=== PATIENT | male | born 1985 | race Caucasian/White ===

== ENCOUNTER 2017-12-29 08:07 | Observation (INO) | payer OTHER ==
[~2017-12-29] VITALS: Ht 182.9 cm; Wt 109.0 kg
[~2017-12-29 08:07] MED LIST: CLEOCIN300 MG PO; LORTAB 10-325 M1 TAB PO
--- NOTE | 2017-12-29 08:21 | NUR ---
PATIENT AMBULATES TO ROOM WITH STEADY GAIT. INFORMED OF PATIENT STATUS AND POSSIBLE SEPSIS RISK.
[2017-12-29] MEDS ORDERED: CLEOCIN150 MG PO (08:35)
[2017-12-29 08:48] LABS: HEMATOCRIT 40.4 % (39.0-50.0); HEMOGLOBIN 14.3 g/dl (14.0-18.0); IMMATURE GRANULOCYTES 0.3 % (0.0-5.0); MEAN CORPUSCULAR HGB 29.4 pG CALC (26.0-32.0); MEAN CORPUSCULAR HGB CONC 35.4 g/L CALC (32.0-36.0); NEUT# 9.73 thou/uL (1.82-7.42); RED BLOOD COUNT 4.87 mill/uL (4.70-6.10); RED CELL DISTRI WIDTH 11.9 % (11.5-15.5)
[2017-12-29 09:03] LABS: ANION GAP 14 (6-22 (CALC)); BUN 11 mg/dL (9-20); BUN/CREATININE RATIO 17 (12-20 (CALC)); CARBON DIOXIDE 25 mmol/l (22-30); CHLORIDE 106 mmol/l (95-108); CREATININE 0.7 mg/dL (0.7-1.3); GFR > 60 ML/MIN (>=60 (CALC)); GFR FOR AFR.AMER. > 60 ML/MIN (>=60 (CALC)); POTASSIUM 4.1 mmol/l (3.5-5.1); SODIUM 140 mmol/l (137-146)
--- NOTE | 2017-12-29 09:03 | NUR ---
IV ABT INFUSING SITE HEALTHY. ADVISED OF CURRENT POC. PT VOICED UNDERSTANDING. CALL LIGHT PROVIDED. SPOUSE AT BEDSIDE.
--- NOTE | 2017-12-29 10:29 | NUR ---
Spoke with and collaborated with, Dr. Lopes regarding admitting this Patient under observational status. Patient may meet criteria for Inpatient in near future, but at this time, Patient meets Observational status - MD agrees.
--- NOTE | 2017-12-29 10:39 | NUR ---
IV ABT COMPLETED. PT APPEARS COMFORTABLE. AFEBRILE. VSS.
--- NOTE | 2017-12-29 10:59 | NUR ---
REPORT CALLED TO STAR OCONNOR, ON [facility]. PT TO RM 274 IN STABLE CONDITION. IV SITE HEALTHY. AFEBRILE.
--- NOTE | 2017-12-29 11:22 | NUR ---
PT TO [facility] ROOM 274 VIA WC AFTER REGISTRATION PAPERWORK RECD.
--- NOTE | 2017-12-29 11:24 | NUR ---
Pt arrived on floor via stretcher accompained by ER Staff, STAR Vang; pt ambulated with steady gait to digital standing scale. Pt alert oriented X4; Left facial swelling noted; Pain 7/10 on pain scale; Pt stated he went to [facility] 12/13/17 because his face was swollen, Cristóbal Mccrary prescribed clindamycin 300mg every 6 hrs; [place] to room and call jacobs; bed in low locked position; will continue to monitor.
[2017-12-29 11:40] VITALS: BP 120/57
--- NOTE | 2017-12-29 12:40 | NUR ---
Scarlet MULLEN, at bed side to discuss poc.
--- NOTE | 2017-12-29 13:48 | NUR ---
Vancomycin consult Age: 32 years Weight: 106.8 kg Height: 182.88 cm Gender: Male SCR: 0.7 mg/dl Dosing weight: 89.28 kg IBW: 77.60 kg CRCL (ml/min): 164.7 Noah (hr-1): 0.141 Half-life (hrs): 4.92 Vd (liters): 74.76 (factor: 0.7 L/kg) Vancomycin 1500 mg Q8H to produce a predicted peak of 26 mcg/ml and a predicted trough of 12 mcg/ml based on (Population-based pharmacokinetic analysis).
--- NOTE | 2017-12-29 15:40 | NUR ---
pt resting in bed with hob elevated; no s/o of distress noted; resp even and unlabored; call light in reach; pt's family in room visiting; will continue to monitor.
[2017-12-29 15:50] VITALS: BP 124/68
--- NOTE | 2017-12-29 17:00 | NUR ---
PT STATED 0/10 PAIN, TEMP 102.6, COOL COMPRESS TO FOREHEAD; TEMP SET TO COOL; BLANKETS OFF PT; NO S/O OF DISTRESS; HOB ELEVATED; WILL CONTINUE TO MONITOR.
[2017-12-29 19:11] VITALS: BP 118/62
--- NOTE | 2017-12-29 19:30 | NUR ---
PATIENT RESTING IN BED AT THIS TIME-AWAKE ALERT AND ORIENTEDX3. PATIENT WITH SEVERE SWELLING TO LEFT SIDE OF HIS FACE AND AROUND LEFT EYE. USEING COLD PACK TO FACE ORDERED, HOB IS ELEVATED. NO DIFFICULTY IN BREATHING OR SWALLOWING. IV SITE TO RIGHT AC WITH IVF NS PATENT AND INFUSING ORDERED. CALL LIGHT IN REACH. WILL CONT TO MONITOR.
--- NOTE | 2017-12-30 00:17 | NUR ---
PATIENT RESTING IN BED WITH HOB ELEVATED AND EYES CLOSED. APPEARS SLEEPING AT THIS TIME. RESP ARE EVEN AND UNLABORED. VANCO INFUSING VIA RIGHT AC SITE-SITE REMAINS HEALTHY AT THIS TIME. NO DIFFICULTY WITH BREATHING NOTED. CALL LIGHT IN REACH. WILL CONT TO MONITOR.
--- NOTE | 2017-12-30 03:50 | NUR ---
PATIENT APPEARS SLEEPING AT THIS TIME WITH HOB ELEVATED AND EYES CLOSED. IVF PATENT AND INFUSING VIA RIGHT AC SITE AT 100CC/HR. SITE REMIANS HEALTHY AT THIS TIME. CALL LIGHT IN REACH. WILL CONT TO MONITOR.
[2017-12-30 04:23] VITALS: BP 118/64
[2017-12-30 04:43] LABS: HEMATOCRIT 42.8 % (39.0-50.0); IMMATURE GRANULOCYTES 0.5 % (0.0-5.0); MEAN CELL VOLUME 84.1 fL CALC (80.0-100.0); MEAN CORPUSCULAR HGB 29.5 pG CALC (26.0-32.0); NEUT# 10.16 thou/uL (1.82-7.42); RED BLOOD COUNT 5.09 mill/uL (4.70-6.10); RED CELL DISTRI WIDTH 11.9 % (11.5-15.5)
--- NOTE | 2017-12-30 05:42 | NUR ---
PATIENT RESTING IN BED-AWAKE ALERT AND ORIENTEDX3. SWELLING TO LEFT SIDE OFHIS FACE HAS IMPROVED OVERNIGHT. IVF ANTIBIOTICS HUNG ORDERED. IV SITE TO RIGHT AC REMAINS HEALTHY. ICE PACK PROVIDED FOR LEFT SIDE OF HIS FACE. PATIENT MEDICATED FOR PAIN WITH LORTAB 5/325MG PO FOR 8/10 ON PAIN SCALE. CALL LIGHT IN REACH. WILL CONT TO MONITOR.
--- NOTE | 2017-12-30 07:24 | NUR ---
SHIFT CHANGE REPORT FROM MICHELLE, NASRIN SLEEPING BUT AROUSES TO VERBAL STIMULI, ORIENTED, DENIES PAIN AT THIS TIME, EDEMA TO LEFT FACE HAS GREATLY IMPROVED IVF INFUSING, CALL ADAIR IN REACH.
[2017-12-30 07:37] VITALS: BP 116/60
--- NOTE | 2017-12-30 10:36 | NUR ---
SITTING UP ON SIDE OF BED AT THIS TIME, TICKET PRINTER AND TAGGER REPORTED PT C/O SEVERE PAIN TO LEFT FACE, PAIN CONCERN ADDRESSED AND PT ENCOURAGED TO REPORT PAIN ISSUES TO NURSING STAFF, EDUCATED ON ADVERSE EFFECTS OF IGNORING PAIN AND INFORMED OF FREQUENCY OF MEDICATION NEEDED. WILL CONTINUE TO MONITOR.
--- NOTE | 2017-12-30 12:32 | NUR ---
ATE MEAL WITHOUT DIFFUCULTY, RESTING IN BED AT THIS TIME, PAIN CONTROLLED, FAMILY MEMBERS IN ROOM, CALL ADAIR IN REACH.
[2017-12-30 15:15] VITALS: BP 134/63
--- NOTE | 2017-12-30 16:00 | NUR ---
SITTING UP IN RECLINER IN ROOM, DENIED PAIN AND REFUSED PAIN MED STATING HE DOES NOT HAVE ANY PAIN, ADVISED TO ASK FOR PAIN MED WHEN NEEDED AND NOT TO ALLOW PAIN TO GET TOO INTENSE, STATED UNDERSTANDING, WILL CONTINUE TO MONTIOR.
[2017-12-30 18:57] VITALS: BP 129/68
--- NOTE | 2017-12-30 19:15 | NUR ---
PT SITTING UP ON SIDE OF BED. PT IS ALERT AND ORIENTED X3. SHIFT ASSESSMENT COMPLETED AT THIS TIME. IV PATENT X1. PLAN OF CARE REVIEWED WITH PT. PT VERBALIZED UNDERSTANDING. PLACED PAOLA BARONE ON PT AT THIS TIME. CALL LIGHT IN REACH. WILL CONTINUE TO MOMITOR.
--- NOTE | 2017-12-30 23:32 | NUR ---
PT SITTING UP ON SIDE OF BED ON PHONE. CALL LIGHT IN REACH. [facility].
--- NOTE | 2017-12-31 03:33 | NUR ---
PT RESTING IN BED WITH EYES CLOSED. RESP ARE EVEN AND UNLABORED. NO DISTRESS NOTED. CALL LIGHT IN REACH. WILL CONTINUE TO MONITOR.
[2017-12-31 04:01] VITALS: BP 112/69
[2017-12-31 04:27] LABS: IMMATURE GRANULOCYTES 0.8 % (0.0-5.0); MEAN CELL VOLUME 84.7 fL CALC (80.0-100.0); MEAN CORPUSCULAR HGB 29.4 pG CALC (26.0-32.0); MEAN CORPUSCULAR HGB CONC 34.7 g/L CALC (32.0-36.0); NEUT# 12.36 thou/uL (1.82-7.42); RED BLOOD COUNT 4.18 mill/uL (4.70-6.10); RED CELL DISTRI WIDTH 12.4 % (11.5-15.5)
[2017-12-31 04:28] LABS: HEMATOCRIT 35.4 % (39.0-50.0); HEMOGLOBIN 12.3 g/dl (14.0-18.0)
[2017-12-31 04:37] LABS: ANION GAP 12 (6-22 (CALC)); BUN 11 mg/dL (9-20); BUN/CREATININE RATIO 22 (12-20 (CALC)); CARBON DIOXIDE 22 mmol/l (22-30); CHLORIDE 113 mmol/l (95-108); CREATININE 0.5 mg/dL (0.7-1.3); GFR > 60 ML/MIN (>=60 (CALC)); GFR FOR AFR.AMER. > 60 ML/MIN (>=60 (CALC)); POTASSIUM 4.6 mmol/l (3.5-5.1); SODIUM 142 mmol/l (137-146)
[2017-12-31 08:00] VITALS: BP 118/62
--- NOTE | 2017-12-31 08:04 | NUR ---
PT SEEN AWAKE, ALERT, ORIENTED. SWELLING TO LEFT SIDE OF FACE IS DOWN CONSIDERABLY, PER PT. PT DENIES PAIN AT THIS MOMENT, REFUSED MED FOR PAIN UNTIL AT LEAST FINISHING BREAKFAST.
--- NOTE | 2017-12-31 09:12 | NUR ---
PT SEEN BY DR GARCIA THIS AM, ANTICIPATE DISCHARGE TO HOME THIS MORNING.
[2017-12-31] MEDS ORDERED: CLINDAMYCIN300 M1 PO (09:20)
[2017-12-31] MEDS ORDERED: MOTRIN800 MG PO (09:20)
[2017-12-31] MEDS ORDERED: MEDDOSEPAK PO (09:20)
--- NOTE | 2017-12-31 10:07 | NUR ---
PT VERBALIZES UNDERSTANDING OF DC INSTRUCTIONS, HAS FINISHED MORNING ABX, IV HAS BEEN REMOVED. PT IS DRESSING NOW, WAITS ON HIS TO ARRIVE. RXs PROVIDED FOR HIM TO COUNSELING PSYCHOLOGIST AT [facility] WITHOUT CHARGE. NO COMPLAINT OF PAIN, NO UNUSUAL SWELLING NOTED TO FACE.
== END 2017-12-31 10:15 | disposition home or self-care (01) ==
LOC: ED 08:07 → ED-I 08:24 → ED 08:24 → ED-I 10:22 → ED 10:42 → MS2 10:43 → ED 10:43 → MS2 10:43 → ED 11:23 → MS2 12-31 10:15
PROVIDERS: Family Medicine; Nurse Practitioner Family; ADMIT Internal Medicine; ATTEND Internal Medicine
DX: L03.211 Cellulitis of face (principal); K04.7 Periapical abscess without sinus; K02.9 Dental caries, unspecified; F17.210 Nicotine dependence, cigarettes, uncomplicated; Z88.0 Allergy status to penicillin
CPT/HCPCS: G0378; J3370; Q9967

== ENCOUNTER 2019-12-08 10:53 | Emergency (ER) | payer OTHER ==
[~2019-12-08] VITALS: Ht 182.9 cm; Wt 119.0 kg
[~2019-12-08 10:53] MED LIST changes: +CLEOCIN150 MG PO; +CLINDAMYCIN300 M1 PO; +MEDDOSEPAK PO; +MOTRIN800 MG PO
[2019-12-08 11:53] LABS: IMMATURE GRANULOCYTES 0.5 % (0.0-5.0); MEAN CELL VOLUME 83.2 fL CALC (80.0-100.0); MEAN CORPUSCULAR HGB 28.4 pG CALC (26.0-32.0); MEAN CORPUSCULAR HGB CONC 34.1 g/dL CAL (32.0-36.0); NEUT# 4.26 thou/uL (1.82-7.42); RED BLOOD COUNT 5.11 mill/uL (4.70-6.10); RED CELL DISTRI WIDTH 12.1 % (11.5-15.5)
[2019-12-08 11:59] LABS: HEMATOCRIT 42.5 % (39.0-50.0); HEMOGLOBIN 14.5 g/dl (14.0-18.0)
[2019-12-08 12:11] LABS: ALBUMIN 4.7 g/dL (3.2-5.0); ALKALINE PHOSPHATASE 62 u/l (38-126); ANION GAP 12 (6-22 (CALC)); BILIRUBIN, TOTAL 0.6 mg/dL (0.0-1.4); BUN 14 mg/dL (9-20); BUN/CREATININE RATIO 16 (12-20 (CALC)); CARBON DIOXIDE 24 mmol/l (22-30); CHLORIDE 107 mmol/l (95-108); CREATININE 0.8 mg/dL (0.7-1.3); GFR > 60 ML/MIN (>=60 (CALC)); GFR FOR AFR.AMER. > 60 ML/MIN (>=60 (CALC)); LIPASE 64 u/l (23-300); POTASSIUM 4.3 mmol/l (3.5-5.1); SGOT/AST 33 u/l (17-59); SODIUM 139 mmol/l (137-146); TOTAL PROTEIN 7.4 g/dL (6.3-8.2)
[2019-12-08 14:50] VITALS: BP 118/78
== END 2019-12-08 14:55 | disposition home or self-care (01) | DRG 552 ==
LOC: ED 10:53
PROVIDERS: Family Medicine
DX: S16.1XXA Strain of muscle, fascia and tendon at neck level, initial encounter (principal); R07.89 Other chest pain; M25.512 Pain in left shoulder; F17.200 Nicotine dependence, unspecified, uncomplicated; V43.52XA Car driver injured in collision with other type car in traffic accident, initial encounter
CPT/HCPCS: Q9967